=== PATIENT | male | born 1990 | race Caucasian/White ===

== ENCOUNTER 2018-05-12 12:35 | Emergency (ER) | payer OTHER ==
[2018-05-12 12:45] VITALS: BP 150/77; PULSE 70; TEMP 98.3; BMI 20.9
--- NOTE | 2018-05-12 13:06 | PDOC ---
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 Denies blurry vision or change in vision. Denies contact lens use. Denies any other symptoms Timing/Duration: 1-3 hours Past History - Past Medical History Allergies/Adverse Reactions: Allergies Allergy/AdvReac Type Severity Reaction Status Date / Time No Known Allergies Allergy Verified 05/12/18 12:37 Home Medications: Ambulatory Orders Ofloxacin 0.3% Ophth Soln [Ocuflox -] 2 drop OP Q6H 5 Days #1 bottle 05/12/18 COPD: No - Suicide/Smoking/Psychosocial Hx Smoking History: Never smoked Information on smoking cessation initiated: No Hx Alcohol Use: No Drug/Substance Use Hx: No Substance Use Type: None Review of Systems - Review of Systems Able to Perform ROS?: Yes Is the patient limited Vietnamese proficient: No Constitutional: No: Chills, Diaphoresis, Fever, Loss of Appetite, Malaise, Night Sweats, Weakness, Weight Stable, Unintentional Wgt. Loss, Unexplained wgt Loss, Other HEENTM: Yes: Symptoms Reported, See HPI, Eye Pain, Tearing (left eye). No: Blurred Vision, Recent change in vision, Double Vision, Cataracts, Ear Pain, Ocular Prothesis, Ear Discharge, Nose Pain, Nose Congestion, Tinnitus, Nose Bleeding, Hearing Loss, Throat Pain, Throat Swelling, Mouth Pain, Dental Problems, Difficulty Swallowing, Mouth Swelling, Other Respiratory: No: Cough, Orthopnea, Shortness of Breath, SOB with Exertion, SOB at Rest, Stridor, Wheezing, Productive cough, Hemoptysis, Other Cardiac (ROS): No: Chest Pain, Edema, Irregular Heart Rate, Lightheadedness, Palpitations, Syncope, Chest Tightness, Other ABD/GI: No: Abdominal Distended, Abd. Pain w/ defecation, Blood Streaked Bowels , Constipated, Diarrhea, Difficulty Swallowing, Nausea, Poor Appetite, Poor Fluid Intake, Rectal Bleeding, Vomiting, Indigestion, Abdominal cramping, Tarry Stools, Other Musculoskeletal: No: Back Pain, Gout, Joint Pain, Joint Swelling, Muscle Pain, Muscle Weakness, Neck Pain, Joint Stiffness, Other Integumentary: No: Bruising, Change in Color, Change in Hair/Nails, Dryness, Erythema, Flushing, Lesions, Lumps, Pallor, Pruritus, Rash, Sweating, Other All Other Systems: Reviewed and Negative *Physical Exam - Vital Signs Last Vital Signs Temp Pulse Resp BP Pulse Ox 98.3 F 70 18 150/77 100 05/12/18 12:37 05/12/18 12:37 05/12/18 12:37 05/12/18 12:37 05/12/18 12:37 - Physical Exam Comments: 05/12/18 13:09 GENERAL: Well developed, well nourished. Awake and alert. No acute distress. HEENT: Mildly injected left conjunctiva. Small 1 mm superficial abrasion on the cornea left eye on exam with fluorescein stain. No eye ulceration or penetrating trauma. No foreign objects visualized in the eye .Normocephalic, atraumatic. PERRLA, EOMI. No right conjunctival pallor. Sclera are non-icteric. Moist mucous membranes. Oropharynx is clear. NECK: Supple. Full ROM. No JVD. Carotid pulses 2+ and symmetric, without bruits. No thyromegaly. No lymphadenopathy. CARDIOVASCULAR: Regular rate and rhythm. No murmurs, rubs, or gallops. Distal pulses are 2+ and symmetric. PULMONARY: No evidence of respiratory distress. Lungs clear to auscultation bilaterally. No wheezing, rales or rhonchi. ABDOMINAL: Soft. Non-tender. Non-distended. No rebound or guarding. No organomegaly. Normoactive bowel sounds. MUSCULOSKELETAL Normal range of motion at all joints. No bony deformities or tenderness. No CVA tenderness. EXTREMITIES: No cyanosis. No clubbing. No edema. No calf tenderness. SKIN: Warm and dry. Normal capillary refill. No rashes. No jaundice. NEUROLOGICAL: Alert, awake, appropriate. Cranial nerves 2-12 intact. No deficits to light touch and temperature in face, upper extremities and lower extremities. No motor deficits in the in face, upper extremities and lower extremities. Normoreflexic in the upper and lower extremities. Normal speech. Toes are down- going bilaterally. Gait is normal without ataxia. PSYCHIATRIC: Cooperative. Good eye contact. Appropriate mood and affect. General Appearance: Yes: Nourished, Appropriately Dressed. No: Apparent Distress Medical Decision Making - Medical Decision Making 05/12/18 13:11 Patient with no sig Past medical history presenting with complain of foreign body sensation left eye after piece of metal eye went into left eye. Exam shows no evidence of foreign body in the eye with small superficial abrasion cornea. Patient will be discharged home on ophthalmic eyedrops with ophthalmology follow -up *DC/Admit/Observation/Transfer Diagnosis at time of Disposition: Corneal abrasion, left Qualifiers: Encounter type: initial encounter Qualified Code(s): S05.02XA - Injury of conjunctiva and corneal abrasion without foreign body, left eye, initial encounter Foreign body of left eye Qualifiers: Encounter type: initial encounter Qualified Code(s): T15.92XA - Foreign body on external eye, part unspecified, left eye, initial encounter - Discharge Dispostion Disposition: HOME Condition at time of disposition: Stable Decision to Admit order: No - Prescriptions Prescriptions: Ofloxacin 0.3% Ophth Soln [Ocuflox -] 2 drop OP Q6H 5 Days #1 bottle - Referrals Referrals: Alyssa Rivera MD [Staff Physician] - - Patient Instructions Printed Discharge Instructions: DI for Corneal Abrasion Additional Instructions: Use prescribes eyedrops as prescribed. Follow-up with ophthalmology if no improvement in 4 days or persistent symptoms - Post Discharge Activity Forms/Work/School Notes: Back to Work
== END 2018-05-12 13:09 | disposition home or self-care (01) ==
LOC: JERFT 12:35 → JER 12:35 → JERFT 13:09
DX: S05.02XA Injury of conjunctiva and corneal abrasion without foreign body, left eye, initial encounter (principal); W22.8XXA Striking against or struck by other objects, initial encounter; Y93.89 Activity, other specified; Y92.89 Other specified places as the place of occurrence of the external cause; Y99.0 Civilian activity done for income or pay
CPT/HCPCS: 99281-25